=== PATIENT | male | born 1950 | race Caucasian/White ===

== ENCOUNTER → 2018-04-16 | Outpatient (CLI) | payer MEDICARE ==
[2018-04-16 17:13] LABS: Basophils # (A) 0.1 k/uL (0-0.2); Basophils % (A) 1 %; Eosinophils # (A) 0.3 k/uL (0-0.7); Eosinophils % (A) 4 %; HCT 42.4 % (39.0-53.0); HGB 13.7 gm/dL (13.0-17.5); Lymphocytes # (A) 2.1 k/uL (1.0-4.8); Lymphocytes % (A) 26 %; MCH 30.5 pg (25.0-35.0); MCHC 32.2 g/dL (31.0-37.0); MCV 94.7 fL (80.0-100.0); Mean Platelet Volume 7.1; Monocytes # (A) 0.6 k/uL (0-1.0); Monocytes % (A) 7 %; Neutrophils # (A) 4.9 k/uL (1.3-7.7); Neutrophils % (A) 61 %; Platelet Count 150 k/uL (150-450); RBC 4.48 m/uL (4.30-5.90); RDW 13.3 % (11.5-15.5); WBC 8.1 k/uL (3.8-10.6)
[2018-04-16 17:24] LABS: Calcium 9.6 mg/dL (8.4-10.2); Potassium 5.4 mmol/L (3.5-5.1)
[2018-04-16 17:32] LABS: Appearance,Urine Clear (Clear); Bilirubin,Urine Negative (Negative); Blood,Urine Negative (Negative); Color,Urine Yellow; Glucose,Urine (UA) Negative (Negative); Ketones,Urine Negative (Negative); Leukocyte Esterase,Urine Negative (Negative); Nitrite,Urine Negative (Negative); Protein,Urine Negative (Negative); Specific Gravity,Urine 1.014 (1.001-1.035); Urobilinogen,Urine <2.0 mg/dL (<2.0)
== END | disposition home or self-care (01) ==
LOC: LABPAT 16:39
PROVIDERS: ATTEND Urology
DX: Z01.818 Encounter for other preprocedural examination (principal); Z01.812 Encounter for preprocedural laboratory examination; R35.0 Frequency of micturition; N52.9 Male erectile dysfunction, unspecified; E11.9 Type 2 diabetes mellitus without complications; Z79.899 Other long term (current) drug therapy
CPT/HCPCS: 36415; 80048; 81003; 85025; 87086; 93005

== ENCOUNTER 2022-04-18 05:52 | Day surgery (SDC) | payer MEDICARE, OTHER ==
[2022-04-18] MEDS ORDERED: SODIUM CHLORIDE 0.9% 1,000 ML in EMPTY BAG 1 BAG IV SCH (05:55)
[2022-04-18] MEDS ORDERED: ALPRAZolam 0.5 MG TAB PO PRN (05:55)
[2022-04-18] MEDS ORDERED: NITROGLYCERIN SL TABS 0.4 MG TAB SUBLINGUAL PRN (05:55)
[2022-04-18] MEDS ORDERED: ALPRAZolam 0.25 MG TAB PO PRN (05:55)
[2022-04-18] MEDS ORDERED: SODIUM CHLORIDE 0.9% 1,000 ML IV ONE (06:21)
[2022-04-18 06:40] LABS: Basophils # (A) 0.1 k/uL (0-0.2); Basophils % (A) 1 %; Eosinophils # (A) 0.9 k/uL (0-0.7); Eosinophils % (A) 10 %; HCT 46.8 % (39.0-53.0); HGB 15.2 gm/dL (13.0-17.5); Lymphocytes # (A) 2.3 k/uL (1.0-4.8); Lymphocytes % (A) 26 %; MCH 31.2 pg (25.0-35.0); MCHC 32.4 g/dL (31.0-37.0); MCV 96.1 fL (80.0-100.0); Mean Platelet Volume 7.5; Monocytes # (A) 0.6 k/uL (0-1.0); Monocytes % (A) 6 %; Neutrophils # (A) 5.1 k/uL (1.3-7.7); Neutrophils % (A) 55 %; Platelet Count 174 k/uL (150-450); RBC 4.86 m/uL (4.30-5.90); RDW 13.6 % (11.5-15.5); WBC 9.2 k/uL (3.8-10.6)
[2022-04-18 06:42] LABS: Glucose,Whole Blood 83 mg/dL (70-110)
[2022-04-18 06:46] LABS: INR 1.4 (<1.2); Prothrombin Time 14.4 sec (9.0-12.0)
[2022-04-18 06:49] LABS: Calcium 9.1 mg/dL (8.4-10.2); Potassium 4.2 mmol/L (3.5-5.1)
[2022-04-18 06:54] VITALS: RESP 16; TEMP 98.6
[2022-04-18] MEDS ORDERED: ATORVASTATIN 80 MG TAB PO ONE (07:00)
[2022-04-18] MEDS ORDERED: ASPIRIN 325 MG TAB PO ONE (07:00)
[2022-04-18] MEDS ORDERED: HEPARIN SODIUM,PORCINE 2,500 UNIT in SODIUM CHLORIDE 0.9% 250 ML IRRIGATION PRN (07:00)
[2022-04-18] MEDS ORDERED: HEPARIN SODIUM,PORCINE 10,000 UNIT in SODIUM CHLORIDE 0.9% 1,000 ML IRRIGATION PRN (07:00)
[2022-04-18] MEDS ORDERED: VERAPAMIL 2.5 MG/ML 2 ML AMP ONE (07:14)
[2022-04-18] MEDS ORDERED: HEPARIN SODIUM 1,000 UN/ML (10ML VL) ONE (07:30)
[2022-04-18] MEDS ORDERED: fentaNYL (PF) 50 MCG/ML 2 ML AMP ONE (07:30)
[2022-04-18] MEDS ORDERED: fentaNYL (PF) 50 MCG/ML 2 ML AMP IV ONE (07:54)
[2022-04-18] MEDS ORDERED: LIDOCAINE 1% INJ 10MG/ML (30 ML VIAL-PF) SQ ONE (07:55)
[2022-04-18] MEDS: VERAPAMIL SYRINGE (5 MG/10 ML) INTRAARTER ONE ×2 (07:57→08:09)
[2022-04-18] MEDS ORDERED: MIDAZOLAM 2 MG/2 ML VIAL IV ONE (07:58)
[2022-04-18] MEDS ORDERED: HEPARIN SODIUM 1,000 UN/ML (10ML VL) IV ONE (08:02)
[2022-04-18] MEDS ORDERED: IOPAMIDOL-370 125ML BTL INJ ONE (08:09)
[2022-04-18] MEDS ORDERED: ACETAMINOPHEN TAB 325 MG TAB PO ONE (08:14)
[2022-04-18] MEDS ORDERED: RX INFO: IV CONTRAST WAS GIVEN 1 EACH MISC MISCELLANE PRN (08:16)
--- NOTE | 2022-04-18 08:23 | P.CARDCATH ---
Date of Procedure: 04/18/22 Description of Procedure: Cardiac Catheterization: The patient is a 71-year-old male with a known history of diabetes mellitus who has dyspnea on exertion and a positive MPI. Recommendations were made regarding cardiac catheterization, the risks and the complications were discussed with the patient who is in full understanding and agreement. Procedure Description: Patient was brought to cath lab radiological technologist in fasting semi-sedated state after receiving Fentanyl and Benadryl achieiving moderate conscious sedated state. Using Xylocaine Anesthesia and Seldinger technique, a 6-[place] sheath was introduced in the right radial artery . Subsequently, selective coronary angiography was performed using a 5-[place] 3.5 bend Berna catheter. Multiple views of the coronary artery including hemiaxial views were obtained. Following that, catheter and sheath were removed. Hemostasis was obtained with deployment of TR band . There was no immediate complication. Patient was returned to room in stable condition. Of note, the patient received a total of 4000 units of intravenous heparin as well as intra- arterial verapamil. Findings: Left main: This is a large size vessel, bifurcating into LAD and left circumflex, left main is no high-grade stenosis LAD: This is a large-size vessel, giving rise to a large diagonal branch proximally, the LAD and its branches have no evidence of high-grade stenosis. Left circumflex: This is a nondominant vessel, giving rise to large obtuse marginal branch, the left circumflex has no high-grade stenosis RCA: This is a dominant vessel moderate caliber, very tortuous, giving rise to PDA, RCA has no evidence of high-grade stenosis Left Ventriculogram: Performed Conclusion: 1. Normal coronary arteries 2. Right dominance Recommendations: I have recommended continuing aggressive coronary risks modifications including smoking cessation . The findings and the recommendations were discussed with the patient and the family and they were in full understanding and agreement. Duration of sedation is 21 minutes.
[2022-04-18 08:27] LABS: Glucose,Whole Blood 87 mg/dL (70-110)
[2022-04-18] MEDS ORDERED: ASPIRIN 81 MG PO SCH (09:00)
[2022-04-18] MEDS ORDERED: GABAPENTIN 400 MG CAP PO SCH (09:00)
[2022-04-18] MEDS ORDERED: NON FORMULARY DRUG (Vitamin B Complex [Vitamin B Complex] 1 EACH Capsule) PO SCH (09:00)
[2022-04-18] MEDS ORDERED: NON FORMULARY DRUG (L.Acidoph,Paracasei, B.Lactis [Probiotic] 1 EACH Capsule) PO SCH (09:00)
[2022-04-18] MEDS ORDERED: VITAMIN E (DL,TOCOPHERYL ACET) 400 UNIT (180 MG) CAP PO SCH (09:00)
[2022-04-18] MEDS ORDERED: NON FORMULARY DRUG (Empagliflozin [Jardiance] 25 MG Tablet) PO SCH (09:00)
[2022-04-18] MEDS ORDERED: NON FORMULARY DRUG (Turmeric Root Extract [Turmeric] 500 MG Tablet) PO SCH (09:00)
[2022-04-18] MEDS ORDERED: NON FORMULARY DRUG (Magnesium Oxide 250 MG Tab) PO SCH (09:00)
[2022-04-18] MEDS ORDERED: FERROUS SULFATE 325 MG TAB PO SCH (09:00)
[2022-04-18] MEDS ORDERED: NON FORMULARY DRUG (Ubidecarenone [Co Q-10] 100 MG Capsule) PO SCH (09:00)
[2022-04-18] MEDS ORDERED: NON FORMULARY DRUG (Multivitamin [Men's Multi-Vitamin] 1 EACH Tablet) PO SCH (09:00)
[2022-04-18 14:56] VITALS: BP 124/67; PULSE 54
[2022-04-18] MEDS ORDERED: MELATONIN 5 MG TABLET PO SCH (21:00)
[2022-04-18] MEDS ORDERED: traZODone HCL 100 MG TAB PO SCH (21:00)
[2022-04-18] MEDS ORDERED: NON FORMULARY DRUG (Insulin Degludec [Tresiba] 100 UNIT/ML Ml) SQ SCH (21:00)
[2022-04-18] MEDS ORDERED: ATORVASTATIN 20 MG TAB PO SCH (21:00)
[2022-04-18] MEDS ORDERED: LISINOPRIL-HCTZ 10-12.5 MG 1 EACH TAB PO SCH (21:00)
[2022-04-18] MEDS ORDERED: allopurinoL 100 MG TAB PO SCH (21:00)
== END 2022-04-18 13:08 | disposition home or self-care (01) ==
LOC: CATHCVL 05:52
PROVIDERS: ATTEND Internal Medicine Interventional Cardiology
DX: R94.39 Abnormal result of other cardiovascular function study (principal); R06.02 Shortness of breath; I48.0 Paroxysmal atrial fibrillation; I10 Essential (primary) hypertension; E11.9 Type 2 diabetes mellitus without complications; E78.5 Hyperlipidemia, unspecified; F17.210 Nicotine dependence, cigarettes, uncomplicated; Z79.82 Long term (current) use of aspirin; Z20.822 Contact with and (suspected) exposure to COVID-19
CPT/HCPCS: 93458; 80048; 85025; 85610; 87635; C1769 ×3; C1894; J2250; J2001; J3010; J1644; Q9967

== ENCOUNTER 2024-02-17 10:09 | Day surgery (SDC) | payer MEDICARE, OTHER ==
[2024-02-13 12:20] VITALS: BMI 22.7
[2024-02-17 10:48] LABS: Glucose,Whole Blood 77 mg/dL (70-110)
[2024-02-17] MEDS: LACTATED RINGERS 1,000 ML IV SCH (10:48)
[2024-02-17] MEDS: IV FLUID CONTINUATION 1,000 ML IV ONE (10:48)
[2024-02-17 10:53] VITALS: TEMP 98.1
[2024-02-17 11:12] LABS: INR 1.3 (<1.2)
[2024-02-17] MEDS ORDERED: PROPOFOL 10 MG/ML 20 ML VIAL IV ONE (11:35)
--- NOTE | 2024-02-17 11:44 | P.GSHP ---
History of Present Illness H&P Date: 02/17/24 Chief Complaint: Colon cancer screening 73-year-old male here for colonoscopy. Last colonoscopy 8 years ago. No bowel complaints. No family history of colon cancer. Past Medical History Past Medical History: Atrial Fibrillation, Diabetes Mellitus, Fibromyalgia, Hyperlipidemia, Hypertension, Osteoarthritis (OA), Renal Disease, Seizure Disorder, Sleep Apnea/CPAP/BIPAP Additional Past Medical History / Comment(s): BILAT NEUROPATHY FEET, decreased kidney function, ED, tinnitis, recent stress test & echo, "couple leaky valves", uses CPAP, couple seizures years ago related to alcohol abuse, macular degener ation, History of Any Multi-Drug Resistant Organisms: None Reported Past Surgical History: Appendectomy, Heart Catheterization, Orthopedic Surgery Additional Past Surgical History / Comment(s): ORIF LT ANKLE, penile implant,cataract removed. COLONOSCOPY, Past Anesthesia/Blood Transfusion Reactions: No Reported Reaction Additional Past Anesthesia/Blood Transfusion Reaction / Comment(s): no blood transfusion Smoking Status: Former smoker - Past Family History Mother Family Medical History: Cancer Additional Family Medical History / Comment(s): breast Medications and Allergies Home Medications Medication Instructions Recorded Confirmed Type Atorvastatin [Lipitor] 20 mg PO HS 12/25/13 02/13/24 History Cyanocobalamin [Vitamin B-12] 1,000 mcg PO Q48H 06/26/15 02/13/24 History Magnesium Oxide [Mag-Ox] 250 mg PO DAILY 06/26/15 02/13/24 History Multivitamin [Men's Multi-Vitamin] 1 each PO DAILY 06/26/15 02/13/24 History Vitamin B Complex 1 tab PO DAILY 06/26/15 02/13/24 History Warfarin [Coumadin] 5 mg PO MOFR 06/26/15 02/17/24 History Ferrous Sulfate [Feosol] 325 mg PO DAILY 04/16/18 02/13/24 History Ubidecarenone [Co Q-10] 50 mg PO DAILY 04/16/18 02/13/24 History Empagliflozin [Jardiance] 25 mg PO DAILY 04/17/22 02/13/24 History Gabapentin [Neurontin] 600 mg PO TID 04/17/22 02/13/24 History INSULIN ASPART (NovoLOG) [NovoLOG 2 - 8 unit SQ AC-TID PRN 04/17/22 02/13/24 History (formulary)] Lisinopril-Hctz 10-12.5 mg 1 tab PO HS 04/17/22 02/13/24 History [Zestoretic 10-12.5] Turmeric Root Extract [Turmeric] 500 mg PO DAILY 04/17/22 02/13/24 History Warfarin [Coumadin] 7.5 mg PO SUWETHSA 04/17/22 02/17/24 History allopurinoL [Zyloprim] 100 mg PO HS 04/17/22 02/13/24 History metFORMIN HCL [Glucophage] 500 mg PO BID 04/17/22 02/17/24 History Garlic 500 mg PO DAILY 02/13/24 02/13/24 History Ginkgo Biloba [place] Extract [Ginkgo] 1 tab PO DAILY 02/13/24 02/13/24 History Insulin Degludec [Tresiba 10 units SQ HS 02/13/24 02/13/24 History Flextouch U-100 Pen] Lutein 20 mg PO DAILY 02/13/24 02/13/24 History Nortriptyline [Pamelor] 25 mg PO HS 02/13/24 02/17/24 History Allergies Allergy/AdvReac Type Severity Reaction Status Date / Time paroxetine [From Paxil] Allergy Rash/Hives Verified 02/13/24 12:13 Penicillins Allergy Anaphylaxis Verified 02/13/24 12:13 Surgical - Exam Vital Signs Temp Pulse Resp BP Pulse Ox 98.1 F 63 16 111/60 99 02/17/24 10:51 02/17/24 10:51 02/17/24 10:51 02/17/24 10:51 02/17/24 10:51 Physical exam: General: Well-developed, well-nourished HEENT: Normocephalic, sclerae nonicteric Abdomen: Nontender, nondistended Extremities: No edema Neuro: Alert and oriented Results - Labs Abnormal Lab Results - Last 24 Hours (Table) 02/17/24 Range/Units 10:48 PT 14.0 H (10.0-12.5) sec INR 1.3 H (<1.2) Assessment and Plan (1) Colon cancer screening Narrative/Plan: Will proceed with colonoscopy at this time. Current Visit: Yes Status: Acute Code(s): Z12.11 - ENCOUNTER FOR SCREENING FOR MALIGNANT NEOPLASM OF COLON SNOMED Code(s): 220368225
--- NOTE | 2024-02-17 11:58 | P.PCN ---
Date of Procedure: 02/17/24 Procedure(s) Performed: PREOPERATIVE DIAGNOSIS: Colon cancer screening POSTOPERATIVE DIAGNOSIS: Diverticulosis PROCEDURE: Colonoscopy ANESTHESIA: MAC SURGEON: Boy Lee M.D. SPECIMENS: None ENDOSCOPIC PROCEDURE: The patient was placed on the endoscopy table in the left decubitus position. The Olympus colonoscope was inserted into the anus and passed under direct visualization to the base of the cecum. The appendiceal orifice was visualized. From that point the scope was slowly withdrawn inspe cting all surfaces carefully. There were no neoplastic inflammatory or polypoid lesions throughout the cecum, ascending, transverse, descending, sigmoid and rectum. There was scattered diverticulosis noted throughout the colon. Digital rectal examination was normal. The patient was taken to the recovery room in stable condition per anesthesia guidelines. RECOMMENDATIONS: Resume diet. Repeat colonoscopy 7 to 10 years.
[2024-02-17 12:43] VITALS: RESP 18
[2024-02-17 12:45] VITALS: BP 127/72; PULSE 59
== END 2024-02-17 13:10 | disposition home or self-care (01) ==
LOC: ORWHC2ENDO 10:09
PROVIDERS: ATTEND Surgery
DX: Z12.11 Encounter for screening for malignant neoplasm of colon (principal); E11.9 Type 2 diabetes mellitus without complications; K57.30 Diverticulosis of large intestine without perforation or abscess without bleeding; I48.91 Unspecified atrial fibrillation; I10 Essential (primary) hypertension; G40.909 Epilepsy, unspecified, not intractable, without status epilepticus; G47.33 Obstructive sleep apnea (adult) (pediatric); E78.5 Hyperlipidemia, unspecified; M19.90 Unspecified osteoarthritis, unspecified site; M79.7 Fibromyalgia; Z79.4 Long term (current) use of insulin; Z79.84 Long term (current) use of oral hypoglycemic drugs; Z87.891 Personal history of nicotine dependence; Z88.0 Allergy status to penicillin; Z79.899 Other long term (current) drug therapy
CPT/HCPCS: 85610; J2704; G0121